=== PATIENT | female | born 1975 | race African-American/Black ===

== ENCOUNTER 2017-04-24 16:05 | Inpatient (IN) ==
[2017-04-24 16:50] LABS: Basophils % 0.1 % (0.0-0.8); Eosinophils # 0.1 10*3/uL (0.0-0.87); Eosinophils % 0.8 % (0.00-10.9); Hematocrit 28.4 VOL% (35.7-47.0); Immature Granulocytes % 0.4 %; Immature Granulocytes Absolute 0.03 #; Lymphocytes # 1.3 10*3/uL (1.4-4.0); Lymphocytes % 16.1 % (21.3-54.2); Mean Corpuscular HGB Conc 35.2 GM/DL (32-36); Mean Corpuscular Hemoglobin 28 PG (27-34); Mean Corpuscular Volume 80.7 FL (87-102); Mean Platelet Volume 9.6 FL (9.6-12.0); Monocytes # 0.5 10*3/uL (0.11-0.8); Monocytes % 6.8 % (1.7-12.7); Neutrophils # 6.1 10*3/uL (1.4-7.4); Neutrophils % 75.8 % (38.7-73.9); Platelet Count 256 T/CUMM (130-400); Red Blood Count 3.52 MC/CUMM (3.8-5.5); Red Cell Distribution Width 13.5 % (9.3-17.3)
[2017-04-24] MEDS ORDERED: LACTATED RINGERS 500 ML IV PRN (16:56)
[2017-04-24] MEDS ORDERED: MEPERIDINE 50 MG/1 ML VIAL IV PRN (16:56)
[2017-04-24] MEDS ORDERED: ONDANSETRON 4 MG/2 ML VIAL IV PRN (16:56)
[2017-04-24] MEDS ORDERED: MAGNESIUM SULF RIDER 100 ML IV ONE ×2 (17:05→17:14)
[2017-04-24] MEDS: LACTATED RINGERS 1,000 ML IV SCH (17:08)
[2017-04-24 17:09] LABS: INR 0.9; PT Patient Result 9.4 SECS; Partial Thromboplastin Time 27.5 SECS (0-40)
[2017-04-24] MEDS: BETAMETH SODIUM PHOS/ACETATE 30 MG/5 ML VIAL IM SCH (17:10)
[2017-04-24] MEDS: hydrALAZINE 20 MG/1 ML VIAL IV SCH ×2 (17:11→17:22)
[2017-04-24] MEDS ORDERED: MAGNESIUM SULF DRIP 40 GM/1,000 ML ML IV ONE (17:15)
[2017-04-24 17:21] LABS: Apearance,Urine Slightly Hazy (Clear); Bilirubin,Urine Negative (Negative); Blood, Urine Negative (Negative); Glucose,Urine (UA) Negative (Negative); Ketones,Urine Negative (Negative); Mucus,Urine Occasional /LPF (Occasional); Nitrite,Urine Negative (Negative); Protein,Urine Negative; RBC,Urine 1 /HPF (0-4); Squamous Epithelial Cell,Urine Occasional /HPF (0-10); Urine Color Yellow (Yellow); Urine Specific Gravity 1.008 (1.001-1.035); WBC,Urine 5 /HPF (0-6)
[2017-04-24 17:34] LABS: Albumin 2.6 G/DL (3.4-5.0); Bilirubin,Total 0.6 MG/DL (0.2-1.0); Calcium 8.7 MG/DL (8.5-10.1); Osmolality,Calculated 279.1 MOS/KG (273-304); Total Protein 6.3 G/DL (6.4-8.3); Uric Acid 5.3 MG/DL (2.6-6.0)
[2017-04-24] MEDS ORDERED: LABETALOL 200 MG TABLET PO ONE (17:35)
[2017-04-24] MEDS ORDERED: LABETALOL 200 MG TABLET ONE (17:37)
[2017-04-24] MEDS ORDERED: LABETALOL 100 MG TABLET ONE (17:37)
[2017-04-24] MEDS: MAGNESIUM SULF DRIP 40 GM/1,000 ML ML IV SCH (17:46)
[2017-04-24 21:16] LABS: Apearance,Urine CLEAR (Clear); Bilirubin,Urine Negative (Negative); Blood, Urine Negative (Negative); Glucose,Urine (UA) Negative (Negative); Hyaline Casts,Urine 1 /LPF (0-3); Ketones,Urine 20 mg/dL (Negative); Nitrite,Urine Negative (Negative); Protein,Urine Negative; RBC,Urine <1 /HPF (0-4); Urine Color Yellow (Yellow); Urine Specific Gravity 1.005 (1.001-1.035); Urine Urobilinogen < 2.0 EU/DL (0.2-1.0); WBC,Urine 1 /HPF (0-6)
[2017-04-24] MEDS: ALUMINUM/MAGNES/SIMETH MAX STR 30 ML UDCUP PO PRN (23:35)
[2017-04-25] MEDS: ACETAMINOPHEN 500 MG TABLET PO PRN ×2 (00:25→10:50)
[2017-04-25] MEDS: BETAMETH SODIUM PHOS/ACETATE 30 MG/5 ML VIAL IM SCH (05:00)
[2017-04-25] MEDS: ALUMINUM/MAGNES/SIMETH MAX STR 30 ML UDCUP PO PRN (07:15)
[2017-04-25 07:54] LABS: HIV Antigen/Antibody Result Nonreactive (Nonreactive); Hepatitis B Surface Ag Quant < 0.10 Index; Hepatitis B Surface Ag Result Negative (Negative); Rubella Antibody IgG 152 IU/ML
[2017-04-25] MEDS: LACTATED RINGERS 1,000 ML IV SCH ×2 (10:45→10:56)
[2017-04-25] MEDS: MAGNESIUM SULF DRIP 40 GM/1,000 ML ML IV SCH (13:50)
[2017-04-25] MEDS: FAMOTIDINE 20 MG TABLET PO SCH ×2 (15:00→20:35)
[2017-04-25] MEDS: LABETALOL 200 MG TABLET PO SCH (20:34)
[2017-04-25] MEDS: DOCUSATE SODIUM 100 MG CAPSULE PO SCH (20:34)
[2017-04-26] MEDS: ACETAMINOPHEN 500 MG TABLET PO PRN (05:01)
[2017-04-26 07:05] LABS: Basophils % 0.1 % (0.0-0.8); Hematocrit 28.7 VOL% (35.7-47.0); Hemoglobin 9.9 GM/DL (12.0-16.0); Immature Granulocytes % 1.2 %; Lymphocytes # 1.2 10*3/uL (1.4-4.0); Lymphocytes % 7.2 % (21.3-54.2); Mean Corpuscular HGB Conc 34.5 GM/DL (32-36); Mean Corpuscular Hemoglobin 28 PG (27-34); Mean Corpuscular Volume 81.8 FL (87-102); Mean Platelet Volume 9.9 FL (9.6-12.0); Monocytes # 1.1 10*3/uL (0.11-0.8); Monocytes % 6.3 % (1.7-12.7); Neutrophils # 14.2 10*3/uL (1.4-7.4); Neutrophils % 85.2 % (38.7-73.9); Platelet Count 301 T/CUMM (130-400); Red Blood Count 3.51 MC/CUMM (3.8-5.5); Red Cell Distribution Width 13.9 % (9.3-17.3); White Blood Count 16.6 T/CUMM (4-12)
[2017-04-26 07:42] LABS: Albumin 2.7 G/DL (3.4-5.0); Bilirubin,Total 0.6 MG/DL (0.2-1.0); Calcium 7.5 MG/DL (8.5-10.1); Potassium 4.2 MMOL/L (3.5-5.1); Total Protein 6.4 G/DL (6.4-8.3); Uric Acid 6.9 MG/DL (2.6-6.0)
[2017-04-26] MEDS: LABETALOL 200 MG TABLET PO SCH ×2 (09:03→22:00)
[2017-04-26] MEDS: FAMOTIDINE 20 MG TABLET PO SCH ×2 (09:03→22:00)
[2017-04-26] MEDS: DOCUSATE SODIUM 100 MG CAPSULE PO SCH ×2 (09:03→22:03)
[2017-04-26] MEDS ORDERED: LABETALOL 100 MG TABLET ONE ×2 (09:05→21:58)
[2017-04-26] MEDS: LACTATED RINGERS 1,000 ML IV SCH ×2 (09:09→10:18)
[2017-04-26] MEDS: BETAMETH SODIUM PHOS/ACETATE 30 MG/5 ML VIAL IM SCH (10:15)
[2017-04-26] MEDS: MAGNESIUM SULF DRIP 40 GM/1,000 ML ML IV SCH (10:18)
[2017-04-27] MEDS: ACETAMINOPHEN 500 MG TABLET PO PRN ×2 (00:59→10:04)
[2017-04-27] MEDS ORDERED: LABETALOL 100 MG TABLET ONE (08:43)
[2017-04-27] MEDS: DOCUSATE SODIUM 100 MG CAPSULE PO SCH ×2 (08:46→21:30)
[2017-04-27] MEDS: LABETALOL 200 MG TABLET PO SCH (08:46)
[2017-04-27] MEDS: FAMOTIDINE 20 MG TABLET PO SCH ×2 (08:46→21:30)
[2017-04-27] MEDS: LACTATED RINGERS 1,000 ML IV SCH ×2 (09:26→21:36)
[2017-04-27] MEDS: METHYLDOPA 500 MG TABLET PO SCH ×2 (14:05→21:30)
[2017-04-27] MEDS ORDERED: INFLUENZA VIRUS VACCINE 0.5 ML SYRINGE IM ONE (17:14)
[2017-04-28 04:54] LABS: Basophils % 0.1 % (0.0-0.8); Eosinophils % 0.3 % (0.00-10.9); Hematocrit 27.3 VOL% (35.7-47.0); Hemoglobin 9.3 GM/DL (12.0-16.0); Immature Granulocytes % 1.2 %; Immature Granulocytes Absolute 0.13 #; Lymphocytes # 1.7 10*3/uL (1.4-4.0); Mean Corpuscular HGB Conc 34.1 GM/DL (32-36); Mean Corpuscular Hemoglobin 28 PG (27-34); Mean Corpuscular Volume 82.7 FL (87-102); Mean Platelet Volume 9.7 FL (9.6-12.0); Monocytes # 1.2 10*3/uL (0.11-0.8); Monocytes % 10.7 % (1.7-12.7); Neutrophils % 72.7 % (38.7-73.9); Platelet Count 280 T/CUMM (130-400); Red Cell Distribution Width 13.7 % (9.3-17.3)
[2017-04-28 05:17] LABS: Albumin 2.6 G/DL (3.4-5.0); Bilirubin,Total 0.6 MG/DL (0.2-1.0); Calcium 7.9 MG/DL (8.5-10.1); Osmolality,Calculated 278.3 MOS/KG (273-304); Potassium 4.2 MMOL/L (3.5-5.1); Uric Acid 6.2 MG/DL (2.6-6.0)
[2017-04-28] MEDS ORDERED: METHYLDOPA 250 MG TABLET PO SCH (08:42)
[2017-04-28] MEDS ORDERED: POLYETHYLENE GLYCOL POWDER 17 GM PACK PO PRN (08:43)
[2017-04-28] MEDS: ALUMINUM/MAGNES/SIMETH MAX STR 30 ML UDCUP PO PRN (09:07)
[2017-04-28] MEDS: DOCUSATE SODIUM 100 MG CAPSULE PO SCH ×2 (09:09→21:08)
[2017-04-28] MEDS ORDERED: MAGNESIUM SULF RIDER 100 ML IV ONE (10:34)
[2017-04-28] MEDS ORDERED: hydrALAZINE 20 MG/1 ML VIAL IV ONE ×2 (10:36→11:28)
[2017-04-28] MEDS: LACTATED RINGERS 1,000 ML IV SCH ×2 (10:46→20:53)
[2017-04-28] MEDS ORDERED: MAGNESIUM SULF DRIP 40 GM/1,000 ML ML IV SCH (11:00)
[2017-04-28] MEDS ORDERED: diphenhydrAMINE 50 MG/1 ML VIAL IV PRN ×2 (11:06)
[2017-04-28] MEDS ORDERED: ePHEDrine 50 MG/ML AMP IV PRN (11:06)
[2017-04-28] MEDS ORDERED: hydrOXYzine HCL 25 MG/1 ML VIAL IM PRN (11:06)
[2017-04-28] MEDS ORDERED: ONDANSETRON 4 MG/2 ML VIAL IV ONE (11:06)
[2017-04-28] MEDS ORDERED: PROMETHAZINE 25 MG/1 ML VIAL IM ONE (11:06)
[2017-04-28] MEDS ORDERED: CITRIC ACID/SODIUM CITRATE 30 ML UDCUP PO ONE (11:07)
[2017-04-28] MEDS ORDERED: FAMOTIDINE 20 MG/2 ML VIAL IV ONE (11:07)
[2017-04-28] MEDS ORDERED: CLINDAMYCIN INJ 900 MG in PREMIX 1 EACH IV ONE (11:10)
[2017-04-28] MEDS ORDERED: OXYTOCIN/LR 20 UNIT/1,000 ML BAG IV ONE ×3 (12:00→15:47)
[2017-04-28 12:13] LABS: INR 0.9; PT Patient Result 9.3 SECS; Partial Thromboplastin Time 25.7 SECS (0-40)
[2017-04-28] MEDS ORDERED: MORPHINE 10 MG/10 ML VIAL ONE (12:49)
[2017-04-28] MEDS ORDERED: TISSUE ADHESIVE 1 EACH APPLICATOR TOP ONE (13:12)
[2017-04-28 14:36] LABS: Cord Arterial Blood HCO3 16.9 MMOL/L
[2017-04-28 14:39] LABS: Cord Venous Blood HCO3 21.4 MMOL/L; Cord Venous Blood PCO2 49.9 MMHG; Cord Venous Blood PO2 21.8
[2017-04-28] MEDS ORDERED: RHO(D) IMMUNE GLOBULIN 300 MCG SYRINGE IM ONE (16:00)
[2017-04-28] MEDS ORDERED: METHYLDOPA 250 MG TABLET PO ONE (19:00)
[2017-04-28] MEDS ORDERED: IBUPROFEN 800 MG TABLET PO PRN (19:59)
[2017-04-28] MEDS: CLINDAMYCIN INJ 900 MG in PREMIX 1 EACH IV SCH (20:35)
[2017-04-28] MEDS: FAMOTIDINE 20 MG TABLET PO SCH (20:52)
[2017-04-28] MEDS: METHYLDOPA 500 MG TABLET PO SCH (21:08)
[2017-04-29] MEDS: CLINDAMYCIN INJ 900 MG in PREMIX 1 EACH IV SCH (04:57)
[2017-04-29 05:08] LABS: Basophils % 0.2 % (0.0-0.8); Eosinophils % 0.3 % (0.00-10.9); Hematocrit 28.4 VOL% (35.7-47.0); Hemoglobin 9.7 GM/DL (12.0-16.0); Immature Granulocytes % 0.6 %; Immature Granulocytes Absolute 0.07 #; Lymphocytes # 1.3 10*3/uL (1.4-4.0); Lymphocytes % 10.7 % (21.3-54.2); Mean Corpuscular HGB Conc 34.2 GM/DL (32-36); Mean Corpuscular Hemoglobin 28 PG (27-34); Mean Corpuscular Volume 82.6 FL (87-102); Mean Platelet Volume 9.8 FL (9.6-12.0); Neutrophils # 9.8 10*3/uL (1.4-7.4); Neutrophils % 80.2 % (38.7-73.9); Platelet Count 284 T/CUMM (130-400); Red Blood Count 3.44 MC/CUMM (3.8-5.5); Red Cell Distribution Width 13.3 % (9.3-17.3); White Blood Count 12.2 T/CUMM (4-12)
[2017-04-29 05:11] LABS: Albumin 2.5 G/DL (3.4-5.0); Bilirubin,Total 0.8 MG/DL (0.2-1.0); Calcium 7.7 MG/DL (8.5-10.1); Potassium 4.3 MMOL/L (3.5-5.1); Uric Acid 5.8 MG/DL (2.6-6.0)
[2017-04-29] MEDS ORDERED: IBUPROFEN 800 MG TABLET PO SCH ×2 (08:00→20:00)
[2017-04-29] MEDS: POLYETHYLENE GLYCOL POWDER 17 GM PACK PO SCH (08:31)
[2017-04-29] MEDS: METHYLDOPA 500 MG TABLET PO SCH ×2 (09:23→21:51)
[2017-04-29] MEDS: IBUPROFEN 800 MG TABLET PO SCH ×2 (09:39→17:14)
[2017-04-29] MEDS: SIMETHICONE CHEW 80 MG TABLET PO PRN ×2 (13:47→19:35)
[2017-04-29] MEDS: MAGNESIUM HYDROXIDE SUSP 30 ML UDCUP PO PRN (19:35)
[2017-04-29] MEDS: DOCUSATE SODIUM 100 MG CAPSULE PO SCH (21:51)
[2017-04-30] MEDS: IBUPROFEN 800 MG TABLET PO SCH ×3 (01:56→18:15)
[2017-04-30] MEDS ORDERED: RHO(D) IMMUNE GLOBULIN 300 MCG SYRINGE IM ONE (08:25)
[2017-04-30] MEDS: MULTIVITAMIN (PRENATAL) TABLET PO SCH (08:58)
[2017-04-30] MEDS: DOCUSATE SODIUM 100 MG CAPSULE PO SCH ×2 (08:58→20:38)
[2017-04-30] MEDS: MAGNESIUM HYDROXIDE SUSP 30 ML UDCUP PO PRN (08:58)
[2017-04-30] MEDS: POLYETHYLENE GLYCOL POWDER 17 GM PACK PO SCH (08:58)
[2017-04-30] MEDS: SIMETHICONE CHEW 80 MG TABLET PO PRN (08:58)
[2017-04-30] MEDS: METHYLDOPA 500 MG TABLET PO SCH ×2 (08:59→20:36)
[2017-04-30] MEDS ORDERED: MAGNESIUM CITRATE 300 ML BOTTLE PO ONE (20:02)
[2017-05-01] MEDS: IBUPROFEN 800 MG TABLET PO SCH ×3 (02:06→16:46)
[2017-05-01] MEDS: POLYETHYLENE GLYCOL POWDER 17 GM PACK PO SCH ×2 (09:45→21:34)
[2017-05-01] MEDS: DOCUSATE SODIUM 100 MG CAPSULE PO SCH ×2 (09:46→21:34)
[2017-05-01] MEDS: METHYLDOPA 500 MG TABLET PO SCH ×2 (09:46→21:33)
[2017-05-01] MEDS: MULTIVITAMIN (PRENATAL) TABLET PO SCH (09:47)
[2017-05-02 07:39] VITALS: BP 156/80
[2017-05-02] MEDS ORDERED: METHYLDOPA 500 MG TABLET PO SCH (08:24)
[2017-05-02] MEDS: MULTIVITAMIN (PRENATAL) TABLET PO SCH (09:07)
[2017-05-02] MEDS ORDERED: INFLUENZA VIRUS VACCINE 0.5 ML SYRINGE IM ONE (12:46)
== END 2017-05-02 16:40 | disposition home or self-care (01) | DRG 766 ==
LOC: N.LDOUT 16:05 → N.LD 16:09 → N.OB 04-29 09:54
PROVIDERS: ADMIT Obstetrics & Gynecology; ATTEND Obstetrics & Gynecology
PROC: LDCSECT (ICD-10-PCS; 2017-04-28 12:00)